=== PATIENT | female | born 1985 | race Caucasian/White ===

== ENCOUNTER 2019-07-17 19:41 | Emergency (ER) | payer SELFPAY ==
[~2019-07-17] VITALS: Ht 154.9 cm; Wt 66.8 kg
[2019-07-17 19:50] VITALS: BP 108/55; TEMP 98.7
[2019-07-17] MEDS ORDERED: ADIPEX-P37.5 MG PO (20:27)
[2019-07-17 20:38] VITALS: PULSE 72
[2019-07-18 18:38] LABS: HEPATITIS B SURFACE ANTIGEN Negative (Negative); HEPATITIS C VIRUS ANTIBODY Negative (Negative); HIV ANTIGEN-ANTIBODY COMBO-AMS Negative (Negative)
== END 2019-07-17 20:38 | disposition home or self-care (01) ==
LOC: COL.ER 19:41
PROVIDERS: Physician Assistant
DX: S69.92XA Unspecified injury of left wrist, hand and finger(s), initial encounter (principal); W46.0XXA Contact with hypodermic needle, initial encounter